=== PATIENT | female | born 1955 | race Caucasian/White ===

== ENCOUNTER 2021-11-27 04:02 | Inpatient (IN) | payer MEDICARE, SELFPAY ==
--- NOTE | 2021-11-27 05:02 | HP.PCM.HOS_ITS ---
HPI - General General Date of Admission: 11/27/21 HPI Narrative PÉREZ ISRAEL, is a 66 F who presents [facility] Medical History (Updated 11/27/21 @ 05:[address] Nanette Worthy MD) Cholecystectomy planned Allergy/AdvReac Type Severity Reaction Status Date / Time No Known Allergies Allergy Unverified 04/11/21 14:41 ROS ROS Narrative This is a test. Review of Systems ROS Unobtainable: due to encephalopathy and due to endotracheal tube Gastrointestinal Gastrointestinal: Reports abdominal pain and coffee ground emesis
[2021-11-27 05:04] VITALS: BP 132/82; PULSE 68; RESP 16; TEMP 37.1; O2SAT 98
--- NOTE | 2021-11-27 05:12 | CT_ITS ---
TEST CT/Abdomen/Pelvis W IV Cont ONLY TEST
--- NOTE | 2021-11-27 05:16 | HP.PCM.HOS_ITS ---
HPI - General General Date of Admission: 11/27/21 HPI Narrative PÉREZ ISRAEL, is a 66 F who presents [facility] Medical History (Updated 11/27/21 @ 05:[address] Nanette Worthy MD) Cholecystectomy planned Allergy/AdvReac Type Severity Reaction Status Date / Time No Known Allergies Allergy Unverified 04/11/21 14:41 ROS ROS Narrative This is a test. Review of Systems ROS Unobtainable: due to encephalopathy and due to endotracheal tube Gastrointestinal Gastrointestinal: Reports abdominal pain and coffee ground emesis Vital Signs Vital Signs Vital Signs: 11/27/21 05:04 Temperature 98.7 F Temperature Source Oral Pulse Rate 68 Respiratory Rate 16 Blood Pressure 132/82 H Blood Pressure Mean 98 Blood Pressure Source Monitor Pulse Ox 98 Oxygen Delivery Method Room Air Physical Exam Const oriented x3 and no apparent distress General Appearance: uncooperative Orientation / Consciousness: disoriented HEENT head/scalp atraumatic and hearing grossly normal bilaterally Eyes EOMs intact bilaterally Neck no lymphadenopathy Resp normal respiratory effort and no retractions GI normal to inspection, nondistended, normoactive bowel sounds Auscultation: hyperactive bowel sounds Assessment & Plan Assessment/Plan (1) Emphysema, unspecified: QUALIFIERS: Emphysema type: unilateral Qualified Code(s): J43.0 - Unilateral pulmonary emphysema [MacLeod's syndrome] PLAN: Plan This is a test.
--- NOTE | 2021-11-27 05:24 | PCM.PN.CARD ---
Subjective Subjective This is a test. Objective Data Vital Signs: Vital Signs Temp Pulse Resp BP Pulse Ox 98.7 F 68 16 132/82 H 98 11/27/21 05:04 11/27/21 05:04 11/27/21 05:04 11/27/21 05:04 11/27/21 05:04 Oxygen Delivery Method Room Air Intake & Output: Intake and Output for Last 24 Hours 11/25/21 11/26/21 11/27/21 23:59 23:59 23:59 Intake Total 300 / 300 Balance 300 / 300 Cardiology Labs/Tests Rhythm: SR EKG: ECHO: Stress Test: Cardiac Cath: PCI: CT Surgery: Holter monitor: EPS: PPM: CXR: Chest CT Scan: Physical Exam Const alert, oriented x3 and no apparent distress General Appearance: cooperative and comfortable HEENT normocephalic, head/scalp atraumatic and hearing grossly normal bilaterally Head and Scalp: normal to inspection Eyes PERRL, EOMs intact bilaterally, conjunctivae normal and no scleral icterus Neck full ROM Chest inspection of chest normal Resp normal respiratory effort Cardio regular rate, regular rhythm, S1 normal heart sound and S2 normal heart sound GI normal to inspection, nondistended, normoactive bowel sounds, soft to palpation and non-tender Neuro no focal motor deficits and no sensory deficits noted Psych Appearance: grossly normal Assessment & Plan Assessment/Plan (1) Emphysema, unspecified: QUALIFIERS: Emphysema type: unilateral Qualified Code(s): J43.0 - Unilateral pulmonary emphysema [MacLeod's syndrome] PLAN: Plan This is a test. Charges/Coding Visit Charges Inpatient E&M: 15176 Init Hosp L2
--- NOTE | 2021-11-27 05:28 | PCM.CONS.C ---
Assessment & Plan Assessment/Plan (1) Emphysema, unspecified: QUALIFIERS: Emphysema type: unilateral Qualified Code(s): J43.0 - Unilateral pulmonary emphysema [MacLeod's syndrome] PLAN: Plan This is a test. HPI Consult Data Date of Consult: 11/27/21 HPI Narrative HPI Narrative: PÉREZ ISRAEL, is a 66 F who [facility] Medical History (Updated 11/27/21 @ 05:[address] Nanette Worthy MD) Cholecystectomy planned Allergy/AdvReac Type Severity Reaction Status Date / Time No Known Allergies Allergy Unverified 04/11/21 14:41 ROS ROS Narrative This is a test. Review of Systems ROS Unobtainable: due to encephalopathy and due to endotracheal tube Gastrointestinal Gastrointestinal: Reports abdominal pain and coffee ground emesis Physical Exam Const alert, oriented x3 and no apparent distress General Appearance: cooperative and comfortable HEENT normocephalic, head/scalp atraumatic and hearing grossly normal bilaterally Eyes PERRL, EOMs intact bilaterally, conjunctivae normal and no scleral icterus Neck full ROM Chest inspection of chest normal Resp normal respiratory effort Cardio regular rate, regular rhythm, S1 normal heart sound and S2 normal heart sound GI normal to inspection, nondistended, normoactive bowel sounds, soft to palpation and non-tender Neuro no focal motor deficits and no sensory deficits noted Psych Appearance: grossly normal Risk Stratification Risk Stratification Applicable: Yes Age >/= 65: No >/= 3 CAD Risk Factors (HTN, HLD, DM, family hx of CAD, or current smoker): Yes Aspirin Use in the Past 7 Days: No Severe Angina (>/= episodes in 24 hours): Yes EKG ST Changes >/= 0.5mm: Yes Positive Cardiac Marker: No AL Risk Stratification Score: 3 AL % Risk: 13% Risk Objective Data Vital Signs: Vital Signs Temp Pulse Resp BP Pulse Ox 98.7 F 68 16 132/82 H 98 11/27/21 05:04 11/27/21 05:04 11/27/21 05:04 11/27/21 05:04 11/27/21 05:04 Oxygen Delivery Method Room Air Intake & Output: Intake and Output for Last 24 Hours 11/25/21 11/26/21 11/27/21 23:59 23:59 23:59 Intake Total 300 / 300 Balance 300 / 300 Cardiology Labs/Tests Rhythm: EKG: ECHO: Stress Test: Cardiac Cath: PCI: CT Surgery: Holter monitor: EPS: PPM: CXR: Chest CT Scan:
[2021-11-27] MEDS: HEPARIN/D5w 25,000 UNITS 25,000 UNITS/250 ML IV.SOLN. 10 UNITS CONT INF (05:44)
== END 2021-11-27 23:59 | disposition home or self-care (01) | DRG 192 ==
DX: J43.0 Unilateral pulmonary emphysema [MacLeod's syndrome] (principal)
CPT/HCPCS: 74177; 92523